=== PATIENT | female | born 1965 | race Caucasian/White ===

== ENCOUNTER 2025-10-20 13:13 | Outpatient (CLI) | payer OTHER, SELFPAY | END 2025-10-20 13:14 | disposition home or self-care (01) | PROVIDERS: PCP Nurse Practitioner Family; Visit Provider Nurse Practitioner Family | DX: Z13.6 Encounter for screening for cardiovascular disorders (principal); Z13.0 Encounter for screening for diseases of the blood and blood-forming organs and certain disorders involving the immune mechanism; I10 Essential (primary) hypertension | CPT/HCPCS: 80053; 80061; 85025 ==